=== PATIENT | male | born 1945 | race Caucasian/White ===

== ENCOUNTER 2018-08-16 09:18 | Outpatient (CLI) | payer MEDICARE, MEDICAID ==
--- NOTE | 2018-08-16 10:35 | ULT ---
ULTRASOUND RETROPERITONEUM LIMTED: (ABDOMINAL AORTA) HISTORY: 73-year-old male, former smoker, for abdominal aortic aneurysm screening study. FINDINGS: There is atherosclerotic irregularity throughout the abdominal aorta. The caliber of the abdominal aorta is as follows: Proximal: 2.5 x 2.5 cm Mid: 2 x 2 cm Distal: 1.6 x 1.6 cm IMPRESSION: 1. No abdominal aortic aneurysm. 2. Atherosclerosis of the abdominal aorta. ISELA Nicole POS: BILLIE
== END 2018-08-16 09:19 | disposition home or self-care (01) ==
LOC: BICULT 09:18
PROVIDERS: ATTEND Hospitalist
DX: Z13.6 Encounter for screening for cardiovascular disorders (principal); I70.0 Atherosclerosis of aorta; Z87.891 Personal history of nicotine dependence
CPT/HCPCS: 76775

== ENCOUNTER 2019-07-17 10:53 | Outpatient (CLI) | payer MEDICARE, MEDICAID ==
--- NOTE | 2019-07-17 11:43 | CT ---
EXAM: CT chest without contrast per low-dose cancer screening protocol HISTORY: History of smoking and nicotine dependence COMPARISON: None TECHNIQUE: Multiple contiguous axial images were obtained in a CT of the chest without contrast per l ow-dose cancer screening protocol. Sagittal and coronal reformats were performed. FINDINGS: Pulmonary nodules: No suspicious pulmonary nodules are seen. No focal infiltrates are seen. Pleural space: No pneumothorax or pleural effusion are seen. Heart: The heart is normal in size. Mediastinum: No hilar or mediastinal lymphadenopathy appreciated on this limited noncontrast examinat ion. Bones: Degenerative changes in the spine. Visualized subdiaphragmatic structures: Unremarkable. IMPRESSION: Lung RADS category 1-negative.
== END 2019-07-17 10:54 | disposition home or self-care (01) ==
LOC: CT 10:53
PROVIDERS: ATTEND Student in an Organized Health Care Education/Training Program
DX: Z87.891 Personal history of nicotine dependence (principal)
CPT/HCPCS: G0297

== ENCOUNTER 2021-05-10 11:24 | Emergency (ER) | payer MEDICARE, MEDICAID ==
[2021-05-10 12:28] LABS: Bilirubin Negative (Negative); Blood, Urine Negative (Negative); Clarity Clear (Clear); Glucose, Urine (Dipstick) Normal (Negative); Ketone, Urine Negative (Negative); Leukocyte Negative Leu/uL (Negative); Nitrite Negative (Negative); Protein, Urine (Dipstick) Negative (Neg-Trace); Specific Gravity, Urine 1.012 (1.002-1.036); Urobilinogen Normal mg/dL (Less than 2); pH, Urine 5.5 (5.0-9.0)
== END 2021-05-10 13:11 | disposition home or self-care (01) ==
LOC: ERS 11:24
DX: R33.9 Retention of urine, unspecified (principal); Z87.891 Personal history of nicotine dependence
CPT/HCPCS: 51703; 81003; 87086

== ENCOUNTER 2023-06-13 08:10 | Outpatient (CLI) | payer MEDICARE, MEDICAID ==
[2023-06-13] MEDS ORDERED: Iopamidol-370 76% 500 ML MDV (1 ML CHARGE) ONE (08:48)
== END 2023-06-13 08:11 | disposition home or self-care (01) ==
LOC: BICCT 08:10
PROVIDERS: ATTEND Student in an Organized Health Care Education/Training Program
DX: R10.30 Lower abdominal pain, unspecified (principal)
CPT/HCPCS: 74177; 82565; Q9967